=== PATIENT | male | born 1985 | race Caucasian/White ===

== ENCOUNTER 2019-06-15 12:48 | Emergency (ER) | payer SELFPAY ==
[2019-06-15 12:49] VITALS: BP 135/69; PULSE 97; RESP 16; TEMP 37.1; O2SAT 99; BMI 21.2
--- NOTE | 2019-06-15 12:54 | RAD_ITS ---
STUDY: X-RAY - LEFT CLAVICLE REASON FOR EXAM: Male, 34 years old. Pain due to fall one week ago TECHNIQUE: 2 view(s) of the clavicle. COMPARISON: None. FINDINGS: Intact clavicle. Unremarkable acromioclavicular articulation. Unremarkable visualized sternoclavicular articulation. Normal visualized pulmonary apex. RAD/Clavicle IMPRESSION: No acute displaced fracture, or traumatic subluxation based on current assessment. Electronically Signed: Heriberto Balbuena MD at 13:49 EDT Tel [phone], Service support ,
--- NOTE | 2019-06-15 12:55 | ED.DCSUM_ITS ---
History of Present Illness Chief Complaint: Upper Extremity Injury Informant: Patient Occurred: Weeks Mechanism/Context: Injury, Fall Onset: Weeks Context: Sudden Onset Timing: Continuous Quality of Pain: Dull, Aching Location: Collarbone left Current Severity: Mild Maximum Severity: Severe Worsened by: Movement of left upper extremity and palpation of left clavicle Relieved by: Nothing Associated Symptoms: Loss of Funtion. Negative for: Parasthesia, Weakness Narrative: Patient is a 34-year-old [id number] male presents to the Emergency Room with L shoulder and collar bone pain after fall. He has significant pain with any type of movement. He has had restricted movement. He denies prior injury to the left clavicle. He denied head trauma. He reports no other symptoms. Prior similar symptoms: No Recent Illness/Hospitalization: No - Past Medical History (1) Priapism Status: Acute Past Medical History - Allergies and Home Meds Allergies/Adverse Reactions: Allergies No Known Allergies Allergy (Verified 10/04/17 15:12) Primary Care Physician: Care Physician,No Primary [Primary Care Provider] - Prior records reviewed: Yes Surgical History: noncontributory Lives: Alone Smoking Status: Current every day smoker Alcohol: Rare Drugs: None - Family History Maternal Family History: Reports: No pertinent history Review of Systems General: Denies: Chills, Fever, Malaise, Sweats Cardiovascular: Denies: Chest pain, Palpitations Respiratory: Denies: Dyspnea, Cough, Dyspnea on exertion Musculoskeletal: Reports: Extremity Pain. Denies: Myalgias, Arthralgias, Neck pain, Back pain, Swelling, -, - Skin: Denies: Rash, Abrasions, Wounds Neurological: Denies: Headache, Weakness, Parasthesia, Numbness, -, - Physical Exam Vital Signs/Narrative: Vital Signs Temp Pulse Resp BP Pulse Ox 06/15/19 12:49 98.7 F 97 16 135/69 H 99 Inital Vital Signs reviewed: Yes Right Shoulder: Negative for: Abrasion, Contusion, Deformity, Edema, Hematoma, Limited ROM, - Left Shoulder: Deformity - Left clavicle, Limited ROM - Left shoulder. Negative for: Abrasion, Contusion, Edema, Hematoma Left Humerus: Negative for: Abrasion, Contusion, Deformity, Edema, Hematoma, Limited ROM, - Left Elbow: Negative for: Abrasion, Contusion, Deformity, Edema, Hematoma, Limited ROM, - Left Forearm: Negative for: Abrasion, Contusion, Deformity, Edema, Hematoma, Limited ROM, - Left Wrist: Negative for: Abrasion, Contusion, Deformity, Edema, Hematoma, Limited ROM, - Left Hand: Negative for: Abrasion, Contusion, Deformity, Edema, Hematoma, Limited ROM, - General: Well nourished Head: Normocephalic, Atraumatic Eyes: Perrl, EOMI. Negative for: Pale conjunctiva, Scleral icterus, - ENT: No Trauma, Moist Mucous Membranes Neck: Nontender, Full ROM. Negative for: Spinal Tenderness Cardiovascular: Regular rate, Regular rhythm, No murmurs Respiratory: No distress, CTA bilaterally, Chest nontender Skin: Normal color, No rash Neurological: Alert, Oriented x3, Cranial nerves II-XII grossly intact, Normal Strength, Normal Sensation, - - Axillary, median, radial and ulnar nerve function are intact. Diagnostic/Tx/Re-eval Chest X-Ray - ED: 2 View, Read by ED Physician, - - View x-ray of the clavicle was obtained. There is no evidence of fracture. Probable prior fracture. AC joint is normal. The glenoid humerus joint is normal. No foreign body noted. - Medical Decision Making There is deformity left clavicle compared to the right. There is pain palpation over the mid third. Will obtain x-ray to delineate extent of injury. Patient was medicated with 500 mg of Naprosyn and one [employer] tablet. Since there is no fracture patient will treat with NSAIDs since there is no contraindication. ED Disposition - Plan for ED Patient: Disposition: Home or Assisted Living Diagnosis: Contusion of left clavicle Instructions: Shoulder Contusion Prescriptions: Naproxen [Naprosyn] 500 mg PO BID #14 tab Prescription Printed Referrals: Care Physician,No Primary [Primary Care Provider] - Afia Arnold [NON-STAFF] - 1 Week if not improving Additional Instructions: Since he did not have a primary care provider your refer to [facility].
[2019-06-15] MEDS: Naproxen 500 MG Tablet PO (13:19)
[2019-06-15] MEDS: HYDROcodone Bitartrate/Apap 5/325 Tablet PO (13:19)
== END 2019-06-15 13:42 | disposition home or self-care (01) ==
PROVIDERS: Emergency Provider Emergency Medicine
DX: S40.012A Contusion of left shoulder, initial encounter (principal); W19.XXXA Unspecified fall, initial encounter; Y93.9 Activity, unspecified; Y92.9 Unspecified place or not applicable; Y99.9 Unspecified external cause status; F17.200 Nicotine dependence, unspecified, uncomplicated
CPT/HCPCS: 73000; 99283

== ENCOUNTER 2019-09-21 14:39 | Emergency (ER) | payer MEDICAID, SELFPAY ==
--- NOTE | 2019-09-21 14:00 | EKG12_ITS ---
Test Reason : CP Blood Pressure : / mmHG Vent. Rate : 095 BPM Atrial Rate : 095 BPM P-R Int : 120 ms QRS Dur : 092 ms QT Int : 330 ms P-R-T Axes : 078 071 069 degrees QTc Int : 414 ms Normal sinus rhythm Right atrial enlargement Borderline ECG Confirmed by DEIRDRE FERRER, RAYA ([id number]), editorial cartoonist JATIN CHO ([id number]) on 09/23/2019 10:54:40 AM Referred By: HUMPHREY/KARLENE Confirmed By:RAYA GILMORE MD
[2019-09-21 14:40] VITALS: BP 122/72; PULSE 103; RESP 20; TEMP 37.2; O2SAT 99; BMI 21.4
[2019-09-21 14:43] VITALS: RESP 20; O2SAT 99
--- NOTE | 2019-09-21 15:06 | RAD_ITS ---
STUDY: X-RAY CHEST REASON FOR EXAM: Male, 34 years old. Cough and shortness breath. TECHNIQUE: Single AP portable view of the chest. COMPARISON: None. FINDINGS: The lungs are clear and expanded. There is no demonstrated pleural abnormality. Normal size heart. Normal mediastinum and yoly. Normal visualized pulmonary arteries. Normal visualized aortic arch and descending thoracic aorta. Normal visualized thoracic spine. Normal visualized ribs, clavicles, and shoulders. There is no demonstrated abnormality of the visualized soft tissue structures of the upper abdomen. RAD/Chest 1 View (Portable) IMPRESSION: Normal x-ray examination of the chest. Electronically Signed: Luis Alfredo Jain MD at 17:20 EST , Service support ,
--- NOTE | 2019-09-21 15:20 | RAD_ITS ---
STUDY: X-RAY - LEFT HAND REASON FOR EXAM: Male, 34 years old. Injury. Previous fracture. TECHNIQUE: 3 view(s) of the hand. COMPARISON: None. FINDINGS: Impacted angulated fracture of the distal fifth metacarpal with significant new bone formation indicating that this is chronic or subacute. Fracture line still seen. No other fractures or dislocations are seen. Normal radiocarpal articulation. Normal distal radioulnar joint. Normal visualized carpal bones. Normal carpal articulations Normal carpometacarpal articulation of the thumb. Normal second through fifth carpometacarpal joints. Normal first-fourth metacarpi. Normal metacarpophalangeal joint of the thumb. Normal interphalangeal joint of the thumb. Normal proximal and distal phalanges of the thumb. Normal metacarpophalangeal joints of the second through fifth fingers. Normal proximal and distal interphalangeal joints of the second through fifth fingers. Normal phalanges of the second through fifth fingers. The soft tissue structures are unremarkable. RAD/Hand Min 3 Views IMPRESSION: Subacute or chronic fracture of the distal fifth metacarpal with impaction and shortening, angulation of the femoral head, and moderately extensive new bone formation. However, fracture line is still evident. Electronically Signed: Luis Alfredo Jain MD at 17:23 EST , Service support ,
--- NOTE | 2019-09-21 15:26 | ED.VISSUMM ---
- ER Visit Summary Date of Service: 09/21/19 Chief Complaint: [Cough] History of Present Illness: The patient is a 34 M [presents to the emergency department with a cough that is had for about 3 weeks. Patient states that over the last week and a half he has had increased phlegm production and increased weakness. Patient complains of chills. Patient complains of a hoarse voice. Patient states that also he wants to have his left hand looked at because he fell while doing some work about 2 weeks ago and injured his left hand. Patient states that he is fractured the fifth metacarpal in the past. Patient has no medical history. Patient is a smoker. Patient has history of drug abuse but states he is trying to get clean. States that he is essentially used everything.] Physical Examination: [HEENT-PERRLA, EOMI. Cranial nerves II through XII grossly intact. TMs clear. Mucous membranes moist. No adenopathy. Cardiovascular-regular rate and rhythm without murmur or ectopy Lungs-good aeration bilaterally. Patient has some coarse breath sounds bilaterally. Patient is some faint expiratory wheezes. No significant tachypnea. No accessory muscle use or retractions. Abdomen-normoactive bowel sounds, soft, nontender, no rebound or rigidity, no peritoneal signs. Extremities-intact ?4, normal range of motion, normal pulses. Left hand-patient has some mild soft tissue swelling noted over the fifth MCP joint with some tenderness on palpation. Patient has decreased ability to extend the fifth finger secondary to pain and some swelling noted. There is no ecchymosis or bruising noted. Neurovascular intact.] Test Results: [Chest x-ray was normal. X-rays of the left hand obtained showed 1/5 metacarpal subacute fracture. Emergency Department Course and Treatment: [Was placed in an ulnar gutter splint. Patient was given a sling. Patient will be started on doxycycline and he received a DuoNeb aerosol in the emergency department.] Treatment Plan: [Started on doxycycline, given albuterol MDI, and Tessalon Perles.] Advised to use ibuprofen or Tylenol for discomfort. Patient will be given referral to orthopedics for follow-up. Disposition: [Discharged home in stable condition.] Impression: [Bronchitis Left hand fracture fifth metacarpal] This note was generated with [employer] software. It may contain incorrect words, spelling, and punctuation that were not noted in review of the chart prior to signing ED Disposition - Plan for ED Patient: Referrals: Care Physician,No Primary [Primary Care Provider] -
[2019-09-21 15:47] VITALS: BP 106/68; PULSE 111; PULSE 96; RESP 18; RESP 20; TEMP 37.3; O2SAT 96; O2SAT 99
[2019-09-21] MEDS: Ipratropium/Albuterol Sulfate 3 ML AMPUL.NEB INHALATION (15:48)
--- NOTE | 2019-09-21 17:25 | ED.DEP ---
ED Disposition - Plan for ED Patient: Instructions: BRONCHITIS, Antiobiotic Treatment (Adult), FRACTURE, Boxer's Prescriptions: Doxycycline 100 mg PO BID #20 cap Prescription Printed Benzonatate [Tessalon Perle] 200 mg PO TID PRN PRN #20 cap PRN Reason: Cough Prescription Printed Albuterol Inhaler [Ventolin Hfa] 2 puff INHALATION Q4H PRN PRN #1 inhaler PRN Reason: Wheezing Prescription Printed Referrals: Care Physician,No Primary [Primary Care Provider] - Mitra Mahajan MD [STAFF PHYSICIAN] - 3-5 Days Aman Batista DO [STAFF PHYSICIAN] - 3-5 Days
[2019-09-21] MEDS: Doxycycline 100 MG CAPSULE PO (17:54)
[2019-09-21] MEDS: Acetaminophen 325 MG Tablet 650 MG PO (17:54)
== END 2019-09-21 17:56 | disposition home or self-care (01) ==
PROVIDERS: Emergency Provider Emergency Medicine
DX: J40 Bronchitis, not specified as acute or chronic (principal); S62.307A Unspecified fracture of fifth metacarpal bone, left hand, initial encounter for closed fracture; W19.XXXA Unspecified fall, initial encounter; Y93.9 Activity, unspecified; Y92.9 Unspecified place or not applicable; Y99.9 Unspecified external cause status; F17.200 Nicotine dependence, unspecified, uncomplicated
CPT/HCPCS: 29125; 71045; 73130; 93005; 94640; 94760; 99283

== ENCOUNTER 2020-10-11 11:22 | Emergency (ER) | payer MEDICAID, SELFPAY ==
[2019-10-11 05:31] VITALS: BMI 19.3
[2020-10-11 11:22] VITALS: BP 146/84; PULSE 100; RESP 18; TEMP 37.1; O2SAT 100; BMI 27.3
--- NOTE | 2020-10-11 11:35 | ED.DCSUM_ITS ---
History of Present Illness Chief Complaint: Wound Informant: Patient Narrative: Patient is a 35-year-old previously female who presents to emergency department for wound on his nose. His symptoms started 4 days ago. He thought he might of gotten bitten by something but never saw an insect. No abscess or cellulitis in the past. He does not know any history of MRSA. Denies any fevers or chills. No headache. No painful eye movements. He feels like there was some drainage coming from the area. He denies any foreign body sensation in his eye. No ear pain. No neck pain or stiffness. He does have a history of IV drug abuse and has last use a few weeks ago. He has had some nasal congestion but has been fighting a cold. He denies any oral lesions. Past Medical History - Allergies and Home Meds Allergies/Adverse Reactions: Allergies No Known Allergies Allergy (Verified 10/11/20 11:24) Primary Care Physician: Care Physician,No Primary [Primary Care Provider] - Ash Pimentel [[facility]] - 3-5 Days if not improving Prior records reviewed: Yes Surgical History: noncontributory Smoking Status: Current some day smoker - Family History Maternal Family History: Reports: No pertinent history Review of Systems All systems negative except as indicated General: Denies: Chills, Fever, Sweats Eyes: Denies: Visual changes - bilaterally, Diplopia ENT: Denies: Rhinorrhea, Sore throat Cardiovascular: Denies: Chest pain, Palpitations Respiratory: Denies: Dyspnea, Cough, Dyspnea on exertion Gastrointestinal: Denies: Abdominal pain, Nausea, Vomiting, Diarrhea Genitourinary: Denies: Dysuria, Hematuria, Frequency Musculoskeletal: Denies: Back pain, Extremity Pain Skin: Reports: - - Cellulitis of nose. Denies: Wounds Neurological: Denies: Headache, Weakness, Numbness Physical Exam Vital Signs/Narrative: Vital Signs Temp Pulse Resp BP Pulse Ox 10/11/20 11:22 98.7 F 100 18 146/84 H 100 Inital Vital Signs reviewed: Yes General: Well nourished, Well developed, No Acute Distress Head: Normocephalic, Atraumatic Eyes: Perrl, EOMI ENT: Moist mucous membranes, Nasal congestion, - - No nasal foreign body or septal deviation appreciated. External nose is erythematous, tender, warm. There is a small ulceration with some purulent material present. Neck: Supple, Nontender Cardiovascular: Regular rate, Regular rhythm, No murmurs Respiratory: No distress, CTA bilaterally, Chest nontender Abdomen: Soft, Nondistended Back: Nontender, Normal Inspection Extremities: Nontender, No edema Skin: Normal color, No rash Neurological: Alert, Oriented x3, Cranial nerves II-XII grossly intact, Normal Strength, Normal Sensation Psychological: Normal affect, Normal Mood Diagnostic/Tx/Re-eval - Medical Decision Making Patient presents the emergency department for infection on the his nose. This does not appear viral in nature and does appear to have a cellulitis. Besides the cellulitis of the nose he has a benign physical exam. No fever or chills. We will start him on Bactrim and Keflex to treat the infection. Does have a PCP so I gave him a referral for 1 to have close follow-up. Strict return precautions were discussed with him including develop any systemic symptoms or significant spreading of his rash. He understands and is agreeable this plan. Discharged home in stable condition. All questions answered. ED Disposition - Plan for ED Patient: Disposition: Home or Assisted Living Diagnosis: Cellulitis of nose Instructions: ED Cellulitis, Facial Prescriptions: Smz/Tmp Ds [Bactrim Ds] 1 tab PO BID #14 tab Transmission Status: Received by [facility] Cephalexin [Keflex] 500 mg PO Q6 7 Days #28 cap Transmission Status: Received by [facility] Referrals: Care Physician,No Primary [Primary Care Provider] - Ash Pimentel [[facility]] - 3-5 Days if not improving
[2020-10-11 11:54] VITALS: BP 146/84; PULSE 100; PULSE 92; RESP 16; RESP 18; TEMP 37.1; O2SAT 100
== END 2020-10-11 11:58 | disposition home or self-care (01) ==
LOC: ED 11:44
PROVIDERS: Emergency Provider Emergency Medicine
DX: J34.0 Abscess, furuncle and carbuncle of nose (principal); F17.200 Nicotine dependence, unspecified, uncomplicated
CPT/HCPCS: 99282

== ENCOUNTER 2021-05-30 11:44 | Emergency (ER) | payer MEDICAID, SELFPAY ==
[2021-05-30 11:46] VITALS: BP 116/59; PULSE 90; RESP 16; TEMP 36.4; O2SAT 95; BMI 20.9
--- NOTE | 2021-05-30 11:55 | EDS_ITS ---
HPI History of Present Illness Chief Complaint: Unresponsive Informant: patient Narrative Narrative: 36-year-old male was found unresponsive by the police on the ground. Reportedly there was drug paraphernalia around him. He was more responsive for EMS. Patient tells me that he is suffering from a migraine and would like to keep his eyes closed. He falls asleep midsentence and becomes hypoxic. He states that he did not take any drugs today. He denies any falls or injuries. [facility] Medical History (Updated 05/30/21 @ 12:[address] Hammad Graham DO) Drug addiction Home Medications sulfamethoxazole-trimethoprim 1 tab PO BID #14 tab 10/11/20 [Rx Last Taken Unknown] sulfamethoxazole-trimethoprim 1 tab PO BID #14 tab 10/11/20 [Rx Last Taken Unknown] Allergy/AdvReac Type Severity Reaction Status Date / Time No Known Allergies Allergy Verified 05/30/21 11:46 Social History (Updated 05/30/21 @ 11:[address] Hammad Graham DO) Smoking Status: Current every day smoker tobacco type: cigarettes substance use type: heroin ROS ROS ED Constitutional Constitutional ED: Denies chills or weight loss Eyes Eyes: Denies change in vision or diplopia ENT ENT ED: Denies ear pain, rhinorrhea or sore throat Cardiovascular Cardiovascular: Denies chest pain, orthopnea, palpitations or racing heartbeat Respiratory/Chest Respiratory/Chest: Denies cough, dyspnea or orthopnea Gastrointestinal Gastrointestinal: Denies abdominal pain, diarrhea, nausea or vomiting Genitourinary Genitourinary ED: Denies dysuria, hematuria or urinary frequency Musculoskeletal Musculoskeletal: Denies arthralgias or myalgias Integumentary Denies abscess or rash Neurologic Neurologic: Reports headache(s); Denies weakness Psychiatric Psychiatric: Denies anxiety, depression, suicidal ideation or suicidal thoughts Endocrine Endocrinology: Denies polydipsia, polyphagia or polyuria Allergic/Immunologic Allergic/Immunologic ED: Denies mouth swelling, tongue swelling or urticaria EXAM Physical Exam Const Vital Signs: 05/30/21 11:46 Temperature 97.5 F L Temperature Source Oral Pulse Rate 90 Respiratory Rate 16 Blood Pressure 116/59 L Blood Pressure Mean 78 Pulse Ox 95 Oxygen Delivery Method Nasal Cannula Oxygen Flow Rate (L/min) 2 Positive well nourished and well developed General Appearance ED: well developed HEENT Reports normocephalic, head/scalp atraumatic and moist mucous membranes Eyes EOMs intact bilaterally Eyes Narrative: Pupils are 2 mm bilaterally Neck no lymphadenopathy, supple and no JVD Resp normal respiratory effort and clear to auscultation bilaterally Cardio regular rate, regular rhythm and no murmurs GI normal to inspection, nondistended, normoactive bowel sounds and non-tender Palpation: soft Back/Spine no CVA tenderness and normal ROM Extremity normal to inspection General Extremety ED: Negative for edema General Extremity: Negative for edema Neuro CN's II-XII intact bilaterally Sensorium / Orientation: lethargic Motor Exam: strength 5/5 throughout Psych Mood & Affect: Negative for depressed or tearful Skin no rashes or lesions noted and no wounds MDM MDM MDM Narrative Medical decision making narrative: Patient was placed on the monitor. When he sleeps he becomes apneic his pulse ox drops into the 80s. He was placed on a nasal cannula and administered nasal Narcan. Alert. He is requesting to be referred to a psychiatrist. He states he does not believe that he needs detox. He states that he is been self-medicating for mental health reasons. I can refe r him to the counseling center. Discharge Plan Triage Chief Complaint: Unresponsive ED Provider: Hammad Graham Dx/Rx/DC Orders Clinical Impression: Opiate overdose Instructions: ED Overdose, Opiate Prescriptions: No Action sulfamethoxazole-trimethoprim 1 TABLET tablet 1 tab PO BID Qty: 14 RF: 0 sulfamethoxazole-trimethoprim 1 TABLET tablet 1 tab PO BID Qty: 14 RF: 0 Primary Care Provider: Care Physician,No Primary Referrals: Counseling,Center [GROUP OF PHYSICIANS] - As soon as possible Care Physician,No Primary [Primary Care Provider] - Disposition Disposition: Home, Self Care
[2021-05-30] MEDS: Naloxone 2 MG/2 ML Syringe NASAL (11:58)
[2021-05-30 12:55] VITALS: BP 145/89
== END 2021-05-30 13:08 | disposition home or self-care (01) ==
LOC: ED 12:59
PROVIDERS: Emergency Provider Emergency Medicine
DX: T40.601A Poisoning by unspecified narcotics, accidental (unintentional), initial encounter (principal); R40.4 Transient alteration of awareness; Y92.9 Unspecified place or not applicable; G43.909 Migraine, unspecified, not intractable, without status migrainosus; R09.02 Hypoxemia; F17.210 Nicotine dependence, cigarettes, uncomplicated
CPT/HCPCS: 99282